=== PATIENT | male | born 1975 | race Caucasian/White ===

== ENCOUNTER 2022-02-24 09:36 | Emergency (ER) | payer OTHER, BC | END 2022-02-24 10:43 | disposition home or self-care (01) | LOC: DL.ED 09:36 | DX: S80.212A Abrasion, left knee, initial encounter (principal); S80.211A Abrasion, right knee, initial encounter; W18.30XA Fall on same level, unspecified, initial encounter; Y99.0 Civilian activity done for income or pay | CPT/HCPCS: 73564-LT; 99283-25 ==